=== PATIENT | male | born 1965 | race Caucasian/White ===

== ENCOUNTER 2022-01-19 09:07 | Outpatient (CLI) | payer OTHER ==
[2022-01-19 09:50] LABS: Mean Corpuscular HGB CONC 33.4 g/dL (32.0-36.0); Mean Corpuscular Hemoglobin 30.7 pg (27.0-33.0); Mean Platelet Volume 9.8 fl (7.4-10.4); Platelet Count 219 10x3/uL (150-450); RBC Distribution Width 12.9 % (11.5-14.5); Red Blood Cell (RBC) Count 4.88 10x6/uL (4.32-5.72); White Blood Cell (WBC) Count 4.5 10x3/uL (3.5-10.5)
[2022-01-19 09:55] LABS: Anion Gap 14 mmol/L (10-20); BUN (Urea Nitrogen) 15 mg/dL (8.4-25.7); Calc. Creatinine Clearance 0 mL/min (70-130); Calcium 10.3 mg/dL (7.8-10.44); Carbon Dioxide 25 mmol/L (22-29); Chloride 103 mmol/L (98-107); Glucose 137 mg/dL (70-105); Potassium 4.5 mmol/L (3.5-5.1); Sodium 137 mmol/L (136-145)
[2022-01-19 10:05] LABS: Prothrombin Time 10.5 sec (9.5-12.1)
[2022-01-19 18:42] LABS: SARS-CoV-2 PCR by NAA Not Detected (NotDetected)
== END 2022-01-19 09:08 | disposition home or self-care (01) ==
LOC: LABBT 09:07
PROVIDERS: ATTEND Internal Medicine Cardiovascular Disease
DX: Z01.812 Encounter for preprocedural laboratory examination (principal); I47.1 Supraventricular tachycardia; Z20.822 Contact with and (suspected) exposure to COVID-19
CPT/HCPCS: 80048; 85027; 85610; U0003; U0005

== ENCOUNTER 2022-01-21 05:48 | Day surgery (SDC) | payer OTHER ==
[2022-01-20 10:14] VITALS: BMI 39.3
[2022-01-21] MEDS ORDERED: Lidocaine 1% (PF) 30 ML VIAL ONE (06:55)
[2022-01-21] MEDS ORDERED: Heparin 10,000 UNITS/ 10 ML VIAL ONE (06:55)
[2022-01-21] MEDS ORDERED: fentaNYL Citrate/PF 100 MCG/2 ML SYRINGE ONE (06:56)
[2022-01-21] MEDS ORDERED: Scopolamine 1.5 mg/72 hour Patch ONE (07:24)
[2022-01-21] MEDS ORDERED: Lidocaine 1% PF 5 ML VIAL ONE (07:30)
[2022-01-21] MEDS ORDERED: PROPOFOL 200 MG/20 ML VIAL ONE (07:30)
[2022-01-21] MEDS ORDERED: PHENYLEPHRINE-NS 100 MCG/ML 10 ML SYRINGE ONE (07:30)
[2022-01-21] MEDS ORDERED: Ondansetron PF 4 MG/2 ML Vial ONE (07:30)
[2022-01-21] MEDS ORDERED: Propofol 500 MG/50 ML VIAL ONE (07:40)
[2022-01-21] MEDS ORDERED: Isoproterenol 0.2 MG/1 ML AMP ONE (07:41)
[2022-01-21] MEDS ORDERED: SUGAMMADEX SODIUM 200 MG/2 ML VIAL ONE (08:30)
== END 2022-01-21 12:10 | disposition home or self-care (01) ==
LOC: SDC 05:48
PROVIDERS: ATTEND Internal Medicine Cardiovascular Disease
PROC: 4A023FZ Measurement of Cardiac Rhythm, Percutaneous Approach (ICD-10-PCS; principal; 2022-01-21)
PROC: 02583ZZ Destruction of Conduction Mechanism, Percutaneous Approach (ICD-10-PCS; principal; 2022-01-21)
PROC: 02K83ZZ Map Conduction Mechanism, Percutaneous Approach (ICD-10-PCS; principal; 2022-01-21)
PROC: 4A0234Z Measurement of Cardiac Electrical Activity, Percutaneous Approach (ICD-10-PCS; principal; 2022-01-21)
DX: I47.1 Supraventricular tachycardia (principal); E78.5 Hyperlipidemia, unspecified; Z79.84 Long term (current) use of oral hypoglycemic drugs; Z79.899 Other long term (current) drug therapy
CPT/HCPCS: 93005; 93613; 93621; 93653; C1730; C1894; C2630; J1644; J2001; J2405; J2704